=== PATIENT | male | born 1960 | race Caucasian/White ===

== ENCOUNTER → 2016-11-14 | Outpatient (CLI) | payer OTHER ==
[~2016-11-14] MED LIST: ALLERGY10 M2 PO; ASPIRIN81 M2 PO; CARVEDILOL6.25 MG PO; FLOVENT DI50 MCG/DIS IN; GLUMETZA1000 MG/BO PO; LISINOPRIL10 MG PO; METFORMIN PO; MOBIC15 MG PO; OMEPRAZOLE20 M1 PO; ZOCOR PO
--- NOTE | ~2016-11-14 | MR113 ---
[facility] A Service of [facility] RADIOLOGY TEXT RESULTS PATIENT: ANAHI RAMIREZ LOCATION: [facility] : 56 UNIT #: [id number] AGE: [address]: ANNITA ACUÑA APRN SEX: M ORDER DR: [id number] [facility] [address] [place], [place] [address] [id number] MR#: [id number] Acc #: [id number] NAME: ANAHI RAMIREZ : 1960 SEX: M STUDY DATE/TIME: 11/14/2016 19:04 UNIT: [facility] ROOM: STUDY DESCRIPTION: MR Lumbar Wo Contrast Attending Physician: Annita Acuña M.D. Referring Physician: Annita Acuña M.D. Ordering Physician: Annita Acuña M.D. Primary Care Physician: Annita Acuña M.D. MRI CENTER REPORT This report is preliminary unless electronic signature is present. EXAM MRI of the lumbar spine without contrast. HISTORY Low back pain for over 2 years, may have injured back moving dresser in bedroom. Pain also increased while painting 2 months ago. Low back pain extending into left leg. Patient with diabetic neuropathy. FINDINGS Multiplanar multiecho imaging was performed of the lumbar spine utilizing a high field magnet dedicated protocol. Normal spinal alignment. Lumbar vertebral marrow signal unremarkable except for mild anterior edema along the superior endplate of L5 compatible with type 1 Modic changes. Normal termination of the conus. At L1-2, there is degenerative disc changes with disc space narrowing, disc desiccation and a circumferential disc bulge contributing to mild central canal stenosis and mild bilateral foraminal stenosis. Posterior elements unremarkable. At L2-3, the disc space is maintained. Minimal facet hypertrophic change but no significant spinal or foraminal stenosis. At L3-4, mild disc desiccation, mild circumferential disc bulging with mild bilateral foraminal narrowing but no significant central canal stenosis. Minimal facet hypertrophic change. At L4-5, there is disc desiccation with a circumferential disc bulge which in combination with facet ligamentous hypertrophic changes contributes to mild to moderate central canal stenosis left greater than right and bilateral foraminal stenosis. Bilateral L4-5 facet arthropathy. At L5-S1, there is disc desiccation and a small right paracentral annular STS. [facility] A Service of [facility] RADIOLOGY TEXT RESULTS PATIENT: ANAHI RAMIREZ LOCATION: [facility] : 56 UNIT #: [id number] AGE: [address]: ANNITA ACUÑA COST CLERK SEX: M ORDER DR: tear and disc protrusion. Annular tear measures about 6 mm in length and may be a source of back pain without radicular symptoms. There is minimal mass effect on the descending right S1 nerve root and mild bilateral L5-S1 foraminal narrowing. The facet joint is unremarkable at this level. Visualized SI joints appear normal. The paravertebral soft tissues unremarkable. IMPRESSION 1. Multilevel degenerative disc disease as described above in level by level detail. Spinal and foraminal stenosis most pronounced at L4-5 due to circumferential disc bulge with facet hypertrophic changes contributing to moderate central canal stenosis and moderate bilateral foraminal stenosis. 2. Degenerative disc changes L5-S1 with a small right paracentral annular tear with associated bulge. This annular tear can be a source of back pain in the absence of radicular symptoms, but does appear to slightly impinge the descending right S1 nerve root. 3. Moderately advanced L1-2 degenerative disc change but only minimal foraminal narrowing. Dictated by... Bennie Syed M.D. THIS IS AN ELECTRONICALLY VERIFIED REPORT Bennie Syed M.D. at 11/18/2016 5:28 PM NAVEEN/trixie TD: 11/18/2016 11:27 JOB #: [id number] MRI CENTER REPORT Page 1 of 1 COPY
== END | disposition home or self-care (01) ==
LOC: CMRI 18:26
DX: M51.16 Intervertebral disc disorders with radiculopathy, lumbar region (principal); M47.27 Other spondylosis with radiculopathy, lumbosacral region; M51.17 Intervertebral disc disorders with radiculopathy, lumbosacral region; M47.26 Other spondylosis with radiculopathy, lumbar region
CPT/HCPCS: 72148